=== PATIENT | male | born 1975 | race Hispanic/Latino ===

== ENCOUNTER 2017-05-19 10:47 | Inpatient (IN) | payer SELFPAY ==
[~2017-05-19] VITALS: Ht 172.7 cm; Wt 104.5 kg
[~2017-05-19 10:47] MED LIST: CARV6.25 PO; LISI-613 PO
[2017-05-19] MEDS ORDERED: LABETALOL HCL 5 MG/ML 20ML VIAL IV ONE (10:58)
[2017-05-19 11:09] LABS: BASOPHILS % (AUTO) 0.8 % (0.0-5.0); EOSINOPHILS % (AUTO) 0.9 % (0.0-8.0); HEMATOCRIT 48.3 % (42-54); LYMPHOCYTES % (AUTO) 26.4 % (21.0-51.0); MEAN CORPUSCULAR HEMOGLOBIN 29.3 pg (27.0-33.0); MEAN CORPUSCULAR HGB CONC 34.3 g/dL (32.0-36.0); MEAN CORPUSCULAR VOLUME 85.5 fL (79-99); MONOCYTES % (AUTO) 5.9 % (3.0-13.0); NUCLEATED RED BLOOD CELLS 0.1 % (0.0-0.19); PLATELET COUNT (AUTO) 217 K/uL (130-400); RED BLOOD CELL COUNT(AUTO) 5.66 MIL/uL (4.50-6.20); RED CELL DISTRIBUTION WIDTH 14.3 % (11.0-15.5); WHITE BLOOD COUNT (AUTO) 10.3 K/uL (4.8-10.8)
[2017-05-19 11:19] LABS: CREATININE 0.8 mg/dL (0.5-1.5)
[2017-05-19 11:32] LABS: ALBUMIN 3.8 g/dL (3.5-5.0); BILIRUBIN,TOTAL 0.7 mg/dL (0.2-1.0); CREATINE KINASE MB 1.9 ng/mL (0.5-3.6)
[2017-05-19 11:59] LABS: APPEARANCE,URINE Clear (CLEAR); BILIRUBIN,URINE Negative (NEGATIVE); COLOR,URINE Yellow (YELLOW); GLUCOSE, URINE (UA) Negative (NEGATIVE); KETONES,URINE Negative (NEGATIVE); LEUKOCYTE ESTERASE ,URINE Negative (NEGATIVE); NITRATE,URINE Negative (NEGATIVE); OCCULT BLOOD,URINE Moderate (NEGATIVE); PH,URINE 6.5 (5.0-8.0); PROTEIN,URINE 300 (NEGATIVE); UROBILINOGEN,URINE 0.2 mg/dL (0.2-1.0)
[2017-05-19 12:06] LABS: AMPHET/METH SCREEN,URINE NEGATIVE (NEGATIVE); BARBITURATE SCREEN, URINE NEGATIVE (NEGATIVE); BENZODIAZEPINES SCREEN,URINE NEGATIVE (NEGATIVE); CANNABINOID SCREEN,URINE POSITIVE (NEGATIVE); COCAINE SCREEN,URINE NEGATIVE (NEGATIVE); OPIATE SCREEN,URINE NEGATIVE (NEGATIVE); PHENCYCLIDINE SCREEN,URINE NEGATIVE (NEGATIVE)
[2017-05-19 12:13] LABS: HYALINE CASTS, URINE 0-1 /LPF (0-1 /LPF); MUCUS,URINE Rare LPF (None Seen); SQUAMOUS EPITHELIAL CELL,UR Rare /LPF (0-2); WBC,URINE 0-1 /HPF (0-1)
[2017-05-19 12:14] LABS: BACTERIA,URINE Rare /HPF (None Seen)
[2017-05-19] MEDS ORDERED: NITROGLYCERIN 1GM/1 INCH PACKET TD ONE (12:17)
[2017-05-19] MEDS ORDERED: ASPIRIN 325 MG TABLET ONE (12:17)
[2017-05-19 15:38] VITALS: BP 147/94
[2017-05-19] MEDS ORDERED: NITROGLYCERIN 1GM/1 INCH PACKET TD SCH ×2 (15:45→20:00)
[2017-05-19] MEDS ORDERED: ONDANSETRON HCL 4 MG/2 ML VIAL IVP PRN (15:45)
[2017-05-19] MEDS ORDERED: ACETAMINOPHEN EXTRA STRENGTH 500 MG TABLET PO PRN (15:45)
[2017-05-19 16:00] VITALS: BP 145/100
[2017-05-19] MEDS ORDERED: SODIUM CHLORIDE 0.9% 10 ML VIAL IVP PRN (16:00)
[2017-05-19 16:35] LABS: CREATINE KINASE MB 1.5 ng/mL (0.5-3.6); TROPONIN I 0.36 ng/mL (0.00-0.06)
[2017-05-19] MEDS: HYDRALAZINE HCL 20 MG/ML VIAL IV PRN (16:38)
[2017-05-19 17:47] VITALS: BP 161/101
[2017-05-19 19:51] VITALS: BP 148/101
[2017-05-19] MEDS ORDERED: ENOXAPARIN SODIUM 100 MG/1 ML SQ SCH (21:00)
[2017-05-19] MEDS ORDERED: METOPROLOL TARTRATE 25 MG TAB PO SCH (21:00)
[2017-05-19] MEDS: FAMOTIDINE 20MG TAB 20 MG TAB PO SCH (21:02)
[2017-05-19] MEDS: METOPROLOL TARTRATE 50 MG TAB PO SCH (21:02)
[2017-05-19] MEDS ORDERED: LORAZEPAM 2 MG/ML 1 ML VIAL IM ONE (23:15)
[2017-05-19 23:48] LABS: CREATINE KINASE MB 1.1 ng/mL (0.5-3.6); TROPONIN I 0.32 ng/mL (0.00-0.06)
[2017-05-19 23:54] VITALS: BP 178/104
[2017-05-20] MEDS ORDERED: LORAZEPAM 2 MG/ML 1 ML VIAL ONE (00:26)
[2017-05-20] MEDS: HYDRALAZINE HCL 20 MG/ML VIAL IV PRN ×3 (00:31→21:43)
[2017-05-20 03:51] VITALS: BP 140/94
[2017-05-20 04:19] LABS: CREATININE 0.9 mg/dL (0.5-1.5); POTASSIUM 3.4 mmol/L (3.5-5.1); THYROID STIMULATING HORMONE 6.52 uIU/mL (0.36-3.74)
[2017-05-20 07:00] VITALS: BP 177/108
[2017-05-20] MEDS: METOPROLOL TARTRATE 50 MG TAB PO SCH ×2 (08:43→21:43)
[2017-05-20] MEDS: FAMOTIDINE 20MG TAB 20 MG TAB PO SCH ×2 (08:43→21:43)
[2017-05-20] MEDS: ASPIRIN 325MG EC TAB 325 MG TABLET.DR PO SCH (08:43)
[2017-05-20] MEDS: LISINOPRIL 20 MG TABLET PO SCH (08:44)
[2017-05-20 11:00] VITALS: BP 149/105
[2017-05-20 16:00] VITALS: BP 156/105
[2017-05-20 20:15] VITALS: BP 173/101
[2017-05-21 00:06] VITALS: BP 131/73
[2017-05-21 03:39] VITALS: BP 144/91
[2017-05-21 07:00] VITALS: BP 136/95
[2017-05-21] MEDS: ASPIRIN 325MG EC TAB 325 MG TABLET.DR PO SCH (08:38)
[2017-05-21] MEDS: METOPROLOL TARTRATE 50 MG TAB PO SCH (08:38)
[2017-05-21] MEDS: LISINOPRIL 20 MG TABLET PO SCH (08:38)
[2017-05-21] MEDS: FAMOTIDINE 20MG TAB 20 MG TAB PO SCH (08:38)
[2017-05-21] MEDS ORDERED: METO50 PO (10:26)
[2017-05-21] MEDS ORDERED: HYDR25TA PO (10:26)
[2017-05-21] MEDS ORDERED: ATOR20TA65 PO (10:26)
[2017-05-21] MEDS ORDERED: LEVO25TA9 PO (10:26)
[2017-05-21 11:00] VITALS: BP 147/104
[2017-05-21] MEDS ORDERED: METOPROLOL TARTRATE 50 MG TAB PO SCH (21:00)
[2017-05-22] MEDS ORDERED: LEVOTHYROXINE 25 MCG TABLET PO SCH (06:30)
[2017-05-22] MEDS ORDERED: HYDROCHLOROTHIAZIDE 25 MG TABLET PO SCH (09:00)
[2017-05-22] MEDS ORDERED: ATORVASTATIN CALCIUM 20 MG TABLET PO SCH (09:00)
[2017-05-22] MEDS ORDERED: AMLODIPINE BESYLATE 5 MG TAB PO SCH (09:00)
== END 2017-05-21 16:56 | disposition home or self-care (01) | DRG 305 ==
LOC: EDH 10:47 → EDHIP 12:40 → 2AH 14:56
PROVIDERS: ADMIT Family Medicine; ATTEND Family Medicine
DX: I16.0 Hypertensive urgency (principal); E66.01 Morbid (severe) obesity due to excess calories; I11.9 Hypertensive heart disease without heart failure; F12.90 Cannabis use, unspecified, uncomplicated; F17.200 Nicotine dependence, unspecified, uncomplicated; F41.9 Anxiety disorder, unspecified; Z79.899 Other long term (current) drug therapy; Z68.35 Body mass index [BMI] 35.0-35.9, adult
CPT/HCPCS: 36415; 71045; 80048; 80053; 80061; 80305; 81001; 82550; 82553; 83874; 84443; 84484; 85025; 93005; 93306; J0360; J2060; J3490